=== PATIENT | female | born 1985 | race Caucasian/White ===

== ENCOUNTER → 2019-07-21 09:56 | Outpatient (CLI) | payer OTHER, SELFPAY ==
[2019-07-21 12:22] LABS: Free T4, Direct Thyroxine 0.97 ng/dL (0.78-2.19)
[2019-07-21 12:36] LABS: TSH w/ Reflex to FT4 1.41 uIU/mL (0.47-4.68)
[2019-07-22 16:40] LABS: Rubella Antibody IgG 23.9 IU/mL (>15)
== END ==
PROVIDERS: PCP Nurse Practitioner; Referring Provider Obstetrics & Gynecology; Visit Provider Obstetrics & Gynecology
DX: Z00.00 Encounter for general adult medical examination without abnormal findings (principal)
CPT/HCPCS: 36415; 84439; 84443; 86762

== ENCOUNTER → 2019-12-13 11:17 | Outpatient (CLI) | payer OTHER, SELFPAY ==
[2019-12-13 12:23] LABS: Add Manual Diff / Slide Review NO; Basophils Absolute Auto 0 /uL (0-100); Basophils Percent Auto 0.2 % (0-2); Eosinophils Absolute Auto 100 /uL (0-450); Eosinophils Percent Auto 0.9 % (2-4); Hematocrit 40.1 % (36-46); Hemoglobin 13.4 g/dL (12.0-16.0); Lymphocytes Absolute Auto 2100 /uL (1100-4500); Lymphocytes Percent Auto 24.9 % (25-40); Mean Corpuscular HGB Conc 33.6 % (30-36); Mean Corpuscular Volume 80.6 fL (80-100); Monocytes Absolute Auto 600 /uL (0-900); Monocytes Percent Auto 6.8 % (3-14); Neutrophils Absolute Auto 5600 /uL (1500-7000); Neutrophils Percent Auto 67.2 % (50-75); Platelet Count 280 X10^3/uL (150-400); Red Blood Cell Count 4.98 X10^6/uL (4.0-5.2); White Blood Cell Count 8.3 X10^3/uL (4.5-11.0)
[2019-12-13 13:13] LABS: Bilirubin Urine UA NEGATIVE (NEGATIVE); Color Urine UA YELLOW; Glucose Urine UA NEGATIVE (Negative); Ketones Urine UA TRACE (NEGATIVE); Leukocyte Esterase Urine UA 1+ (NEGATIVE); Nitrite Urine UA NEGATIVE (Negative); Occult Blood Urine UA TRACE-LYSED (Negative); Protein Urine UA NEGATIVE (Negative); Specific Gravity Urine UA >=1.030 (1.000-1.035); Urobilinogen Urine UA 0.2 E.U./dL (0.2)
[2019-12-13 13:25] LABS: Hepatitis B Surface Antigen NEGATIVE s/c (NEGATIVE); Rubella Antibody IgG 26.2 IU/mL (>15)
[2019-12-13 13:31] LABS: Appearance Urine UA Slightly Cloudy
[2019-12-13 13:34] LABS: HIV 1 & 2 Ab/Ag 4th Gen Combo NEGATIVE (NEGATIVE); Hep C Virus Ab w/Reflex Quant NEGATIVE s/c (NEGATIVE)
[2019-12-13 13:41] LABS: Amorphous Sediment Urine 1+; Bacteria Urine Moderate (10-30); Mucus Urine 2+ (Negative); RBC Urine 0-1/HPF (0-5/HPF); Squamous Epithelial Cell Urine 1-5 /HPF (0-5/HPF); WBC Urine 1-5/HPF (0-5/HPF)
[2019-12-14 06:09] LABS: RPR Screen Non Reactive (Non Reactive)
[2019-12-14 10:36] LABS: Varicella IgG Antibody >4000 index (Immune >165)
== END ==
PROVIDERS: PCP Nurse Practitioner; Referring Provider Obstetrics & Gynecology; Visit Provider Obstetrics & Gynecology
DX: Z34.01 Encounter for supervision of normal first pregnancy, first trimester (principal)
CPT/HCPCS: 36415; 80055; 81003; 81015; 86787; 86803; 86850; 86900; 86901; 87086; 87389

== ENCOUNTER → 2019-12-28 11:02 | Outpatient (CLI) | payer OTHER, SELFPAY ==
[2019-12-28 11:59] LABS: Specimen Label KIT TEST
== END ==
PROVIDERS: PCP Nurse Practitioner; Referring Provider Obstetrics & Gynecology; Visit Provider Obstetrics & Gynecology
DX: Z34.01 Encounter for supervision of normal first pregnancy, first trimester (principal); Z3A.12 12 weeks gestation of pregnancy
CPT/HCPCS: 99001

== ENCOUNTER → 2020-02-21 12:11 | Outpatient (CLI) | payer OTHER, SELFPAY ==
--- NOTE | 2020-02-21 12:13 | DI.US.S_ITS ---
PROCEDURE: US OB >= 14 WEEKS FETUS INDICATIONS: 20 week anatomy scan OUTSIDE/PRIOR DATING DATA: First dating scan (date and location): 02/08/2020 . Estimated date of delivery (TRINH) from first dating scan: 07/11/2020 . TECHNIQUE: Real-time scanning was performed of the fetus, with image documentation and biometric measurements. Endovaginal scanning: No COMPARISON: [facility], , OB <= 14 WEEKS FETUS, 12/13/2019, 12:25. FINDINGS: General: A single living intrauterine gestation is present. Presentation: Vertex. Placenta: Placental position is posterior , without previa. Amniotic fluid index: 12.9 cm, normal range is 5-24 cm. heart rate: 153 beats per minute. Maternal cervical canal: 4.9 cm long. Normal lower limit is 2.5 cm. biometrics: Biparietal diameter: 20 weeks 3 days Head circumference: 20 weeks 1 Abdominal circumference: 20 weeks 1 day Femur length: 20 weeks 0 days Estimated gestational age from initial scan: 19 weeks 6 days Composite gestational age from present scan: 20 weeks 1 day Estimated weight and percentile: 331 g; 59th percentile Measurement variability for biometric dating: +/- 7 days from 14 weeks to 15 weeks 6 days gestation, +/- 10 days from 16 weeks to 21 weeks 6 days gestation, +/- 2 weeks from 22 weeks to 27 weeks 6 days gestation, +/- 3 weeks for 28 weeks gestation or later. weight reference: 4500 g or EFW >90/95% is considered macrosomia or large for gestational age. EFW <10% is small for gestational age. EFW 5% or less is considered intra-uterine growth restriction. Anatomic survey: Neuro: Ventricles are non-dilated at less than 10 mm. Cisterna magna is normal at 3-11 mm. Cerebellum is normal in size and morphology. Nuchal skin fold: Normal at less than 6 mm between 14-21 weeks gestational age. Face: Nose and lips, facial profile are normal. Spine: No evidence for spina bifida. Heart: 4-chambered heart is present, with normal ventricular outflow tracts. Diaphragm: Diaphragm is intact. Stomach: Left-sided stomach is present. Kidneys: No hydronephrosis. Normal is less than 5 mm in 2nd trimester, less than 7 mm in 3rd trimester. Cord: 3-vessel cord has orthotopic insertion. Bladder: Normal in size. Extremities: All 4 extremities identified. IMPRESSION: 1. Single living intrauterine demonstrating appropriate interval growth with estimated weight at the 59th percentile. 2. anatomic survey within normal limits. Dictated by: Elfego Martínez [facility] Interpreted: Malik Reeves MD on 02/21/2020 at 13:46 Approved by: Malik Reeves M.D. on 02/21/2020 at 15:47
== END ==
PROVIDERS: PCP Nurse Practitioner; Referring Provider Obstetrics & Gynecology; Visit Provider Obstetrics & Gynecology
DX: Z34.02 Encounter for supervision of normal first pregnancy, second trimester (principal); Z3A.20 20 weeks gestation of pregnancy
CPT/HCPCS: 76811

== ENCOUNTER → 2020-04-13 09:44 | Outpatient (CLI) | payer OTHER, SELFPAY ==
[2020-04-13 11:12] LABS: Hematocrit 36.5 % (36-46); Hemoglobin 12.2 g/dL (12.0-16.0)
[2020-04-13 12:18] LABS: GTT (PREG) 1 Hour PP 50gm Dose 110 mg/dL (76-139)
== END ==
PROVIDERS: PCP Nurse Practitioner; Referring Provider Obstetrics & Gynecology; Visit Provider Obstetrics & Gynecology
DX: Z34.02 Encounter for supervision of normal first pregnancy, second trimester (principal); Z3A.26 26 weeks gestation of pregnancy
CPT/HCPCS: 82950; 85014; 85018

== ENCOUNTER → 2020-06-15 09:58 | Outpatient (CLI) | payer OTHER, SELFPAY ==
[2020-06-16 11:34] LABS: Strep Grp B PCR NEG for Grp B Strep
== END ==
PROVIDERS: PCP Nurse Practitioner; Visit Provider Obstetrics & Gynecology
DX: Z34.01 Encounter for supervision of normal first pregnancy, first trimester (principal); Z3A.36 36 weeks gestation of pregnancy
CPT/HCPCS: 87653

== ENCOUNTER 2020-06-28 04:50 | Inpatient (IN) | payer OTHER, SELFPAY ==
--- NOTE | 2020-06-28 04:58 | P.HPOB_ITS ---
OB HPI Date/Time Date of admission: 06/28/20 Date Patient Seen: 06/28/20 Time Patient Seen: 04:58 History of Present Condition Chief complaint: Evaluation of Labor : 1 Para: 0 Estimated Date of Delivery: 07/08/20 Estimated Gestational Age (weeks): 38 Narrative: Antonietta Meeks is a 35 year old female admitted with spontaneous rupture membranes not currently in active labor History of Present care: good care, initiated at week # (10), number of visits (11) and pounds weight gain (39) Dating criteria: LMP confirmed by 1st trimester US Ultrasounds: normal mid trimester US Obstetrical complications: none Medical complications: none Preadmission Labs Blood type: A (+) positive -: Antibody screen: negative, GBS status: negative, HBsAG: negative, HIV: negative and RPR/VDLR: negative -: Chlamydia screen: not detected and Gonorrhea screen: not detected -: Rubella: immune and Varicella: immune HCAB: negative Cell-free DNA: Normal female 1 hr GTT: 110 Evaluation Evaluation Baseline heart rate: 135 Variability: Moderate (11-25) monitor accelerations: Present Monitor Decelerations: Absent Contraction Frequency (minutes): 3 Uterine Contraction Intensity: Mild Category of Tracing: Reactive Status: Category l Cervical dilation (cm): 1 Cervical effacement (%): 80 station: -1 Comments: Grossly ruptured clear fluid [facility] Medical History (Updated 12/08/19 @ 09:19 by Lakshmi Simmons RN) Abnormal Pap smear of cervix (~2005) Allergies (~1994) Anxiety (~2007) Chicken pox Depression (~2002) Eczema (~2018) Foot fracture, right (~2008) History of bipolar disorder (~2015) Human papilloma virus (~2005) Plantar warts Surgical History (Updated 12/08/19 @ 09:19 by Lakshmi Simmons RN) Anesthesia [place] teeth extracted (~1998) Family History (Updated 12/08/19 @ 09:26 by Lakshmi Simmons RN) Father Hyperlipidemia Pancreatitis History of hip replacement Mother Hyperlipidemia History of knee replacement Sister Depression Grandfather Alzheimer's disease Grandfather Cancer Grandmother Diabetes mellitus Myocardial infarction Grandmother No problems noted. Family/Other Myocardial infarction Social History marital status: number of children: 0 household members: spouse lives independently: No caregiver/support person: Yes housing: house pets and animals: Yes (2 dogs, 1 cat. Aware of precautions.) education level: college occupational status: employed current occupational exposures/hazards: No special veronica needs: No leisure activities: exercise (Walking, horse care, active manual labor with employment.) Smoking Status: Never smoker second hand exposure: No alcohol intake: former (2-3 drinks/week.) substance use type: does not use during the past year weight has: remained stable caffeine: No Meds Home Medications and Allergies Home Medications Medication Instructions Recorded Confirmed Type sertraline 100 mg tablet 150 mg PO DAILY tab 07/21/19 12/13/19 History prenat.vits,dejuan,[id number]-petdb 1 tab PO DAILY 12/08/19 12/13/19 History Double Electric Breast Pump 1 ea TOPICAL .prn #1 ea 05/31/20 Rx Allergies Allergy/AdvReac Type Severity Reaction Status Date / Time lamotrigine [From Lamictal] Allergy Intermediate Rash Verified 12/13/19 12:10 Review of Systems Review of Systems Narrative: Patient denies headaches, scotomata, epigastric pain. Good movement. Spontaneous rupture membranes. Mild contractions. ROS: Yes All systems reviewed with the patient and are negative except as otherwise documented Exam Vital Signs (past 8 hours): Blood pressure 138/77, pulse 72, temperature 36.3? Narrative Exam Narrative: HEENT: WNL lungs: clear to auscultation, COR: RRR no S3,S4 or murmers ext: without edema, NT Assessment and Plan Assessment and Plan Assessment and Plan narrative: 38 week gestation with spontaneous rupture membranes. Will monitor for onset of active labor. Pitocin if needed. Anticipate vaginal delivery.
[2020-06-28 05:59] LABS: Add Manual Diff / Slide Review NO; Basophils Absolute Auto 100 /uL (0-100); Basophils Percent Auto 0.8 % (0-2); Eosinophils Absolute Auto 100 /uL (0-450); Hematocrit 37.5 % (36-46); Hemoglobin 12.5 g/dL (12.0-16.0); Lymphocytes Absolute Auto 1900 /uL (1100-4500); Lymphocytes Percent Auto 15.4 % (25-40); Mean Corpuscular HGB Conc 33.4 % (30-36); Mean Corpuscular Hemoglobin 27.3 PG (26-34); Mean Corpuscular Volume 81.6 fL (80-100); Monocytes Absolute Auto 900 /uL (0-900); Neutrophils Absolute Auto 9600 /uL (1500-7000); Neutrophils Percent Auto 75.8 % (50-75); Platelet Count 174 X10^3/uL (150-400); Red Blood Cell Count 4.59 X10^6/uL (4.0-5.2); Red Cell Distribution Width 14.8 % (11.6-14.8); White Blood Cell Count 12.6 X10^3/uL (4.5-11.0)
[2020-06-28 06:15] VITALS: BP 138/77
[2020-06-28 07:13] LABS: COVID19 - ADMIT (NP swab/PCR) Negative (Negative)
[2020-06-28] MEDS: LACTATED RINGERS 1,000 ML 100 ML IV ×2 (08:30→19:08)
[2020-06-28] MEDS: OXYTOCIN PREMIX 30 UNIT/500 ML PLAST..BAG IV (09:12)
--- NOTE | 2020-06-28 15:43 | PM.AN.REGBLK ---
Regional Block Pre-procedure Procedure: Continuous Lumbar Epidural for L&D Attending OB provider: Mariluz Torres PMH/ROS narrative: term labor, no complications, no significant PMH. Hx: No personal or family history of anesthesia problems. ASA Class: II Labs: Hct 37.5 % (36-46) 06/28/20 05:45 Plt Count 174 X10^3/uL (150-400) 06/28/20 05:45 Medications: Current Medications Generic Name Dose Route Start Last Admin Trade Name Freq PRN Reason Stop Dose Admin Calcium Carbonate 1,000 mg 06/28/20 05:13 Calcium Carbonate 500 Mg Tab PO Q2HR PRN Dyspepsia Carboprost Tromethamine 250 mcg 06/28/20 05:13 Carboprost 250 Mcg/Ml Ampul IM Q90M PRN Bleeding Fentanyl 100 mcg 06/28/20 05:13 Fentanyl 100 Mcg/2 Ml Inj IV Q1H PRN Pain, Severe (7-10) Lactated Ringer's 1,000 mls @ 100 mls/hr 06/28/20 05:15 06/28/20 08:30 Lactated Ringers IV 100 mls/hr CONT EDWIN Administration Oxytocin/Lactated Ringer's 30 unit in 500 mls @ 200 mls/hr 06/28/20 05:13 Oxytocin Premix IV CONT PRN Bleeding Protocol Tranexamic Acid 1,000 mg/ 100 mls @ 300 mls/hr 06/28/20 05:13 Sodium Chloride IV NOW PRN Bleeding Oxytocin/Lactated Ringer's 30 unit in 500 mls @ 3 mls/hr 06/28/20 08:08 06/28/20 09:12 Oxytocin Premix IV 3 milliunit/min TITRATE EDWIN 3 mls/hr Administration Protocol 3 MILLIUNIT/MIN Methylergonovine Maleate 0.2 mg 06/28/20 05:13 Methylergonovine 0.2 Mg Tablet PO Q6HR PRN Heavy Bleeding Methylergonovine Maleate 0.2 mg 06/28/20 05:13 Methylergonovine 0.2 Mg/Ml Vial IM NOW PRN Bleeding Misoprostol 800 mcg 06/28/20 05:13 Misoprostol 200 Mcg Tablet FL NOW PRN Bleeding Misoprostol 1,000 mcg 06/28/20 05:13 Misoprostol 200 Mcg Tablet FL NOW PRN Bleeding Misoprostol 400 mcg 06/28/20 05:13 Misoprostol 200 Mcg Tablet SL NOW PRN Bleeding Naloxone HCl 0.2 mg 06/28/20 05:13 Naloxone 0.4 Mg/Ml Vial IV Q2MIN PRN Opiate Reversal Ondansetron HCl 4 mg 06/28/20 05:13 Ondansetron 4 Mg/2 Ml Inj IV Q4HR PRN Nausea And Vomiting Oxytocin 10 unit 06/28/20 05:13 Oxytocin 10 Unit/Ml Vial IM NOW PRN Bleeding Allergies: Allergies Allergy/AdvReac Type Severity Reaction Status Date / Time lamotrigine [From Lamictal] Allergy Intermediate Rash Verified 12/13/19 12:10 Procedure Insertion date: 06/28/20 Insertion time: 15:00 Prep/Local: betadine x3 Interspace: L2-3 Patient position: sitting Needle: 18 gauge ITS KOOLtead (CSE: 27g Pencan through Hustead, clear CSF. 1mL 0.25% bupiv ) Loss of resistance with: saline DAY at (cm): 5 Catheter placed at SKIN (cm): 10 Catheter in SPACE (cm): 5 Insertion: No CSF, No Blood, No Paresthesia with insertion, No Paresthesia with injection and No Test dose reaction Initial Medications TEST DOSE time: 15:00 TEST DOSE: 1.5% lidocaine with epinephrine 1:200k (mL): 3 BOLUS DOSE time: 15:08 BOLUS DOSE (mL): 3 BOLUS DOSE med: other (infusate) Infusion INFUSION: 0.125% bupivacaine and with fentanyl 2 mcg/mL Initial rate (mL/hr): 6 Subsequent interventions: Post-procedure Anesthesia time START: 14:56 Anesthesia time END: 19:52 Post-procedure Anesthesia Assessment: No Anesthesia complications
--- NOTE | 2020-06-28 20:28 | P.PCNOB_ITS ---
Labor & Delivery Delivery date: 06/28/20 Intrapartal Events: None Cervical ripening method: none Induction method: per pitocin protocol Delivery monitor: external FHT Route of delivery: Episiotomy description: None L&D Laceration Description: Perineal - 2nd Degree Delivery repair: vicryl (2-O) Estimated blood loss (mL): 700 Anesthesia Type: Epidural Complications: hemorrhage Narrative: PROCEDURE: at 38w4d presented with PROM with clear fluid and was admitted to Labor and Delivery. Pitocin was initiated after the pt did not spontaneously progress into active labor. The patient progressed through the 1st stage over 16 hours. Pain was controlled with an epidural. The patient progressed through the 2nd stage over 1 hour and delivered a viable female infant with APGARs 8/9 at 19:52 via . The cord was cut and clamped after 5 minutes, when a large gush of blood was seen from the vagina. The placenta did not easily delivery with gentle traction at that time, however. The perineum and vagina were inspected with 2nd degree laceration with superficial extension to the rectum but not through the sphincter. This was repaired with 2-O Vicryl. With active management of the third stage of labor, the cord avulsed with gentle traction. The placenta was then manually removed, with the uterus swept after removal to ensure there were no remaining pieces. The pt was noted to have a hemorrhage due to intermittent brisk bleeding prior to delivery of the placenta. There was no uterine atony after the placenta delivered. PREPROCEDURE DIAGNOSIS: Intrauterine at 38w4d GBS negative RH positive POSTPROCEDURE DIAGNOSIS: Intrauterine at 38w4d, delivered Same as preprocedure hemorrhage [place] Baby 1: Infant gender: Female Presentation: vertex Position: Right Occiput Anterior Placenta delivery description: Manual Removal Cord Vessel Description: 3 Vessels score (1 min): 8 score (5 min): 9 weight: 7 lb 15 oz Plan for aftercare: Routine care and Other (2g Ancef due to manual extraction of placenta)
[2020-06-28] MEDS: OXYTOCIN PREMIX 30 UNIT/500 ML PLAST..BAG 200 UNIT IV (21:05)
[2020-06-28] MEDS: CEFAZOLIN 1 GM VIAL 2 GM IV (22:19)
[2020-06-28] MEDS: IBUPROFEN 600 MG TABLET PO (23:53)
[2020-06-28] MEDS: DERMOPLAST SPRAY 20% 60 ML 1 SPRAY TOP (23:54)
[2020-06-29] MEDS: IBUPROFEN 600 MG TABLET PO ×2 (06:10→12:03)
[2020-06-29] MEDS: PRENATAL VIT,CALC/IRON/FOLIC 1 TABLET 1 TAB PO (08:23)
[2020-06-29] MEDS: SERTRALINE 50 MG TABLET 150 MG PO (08:24)
[2020-06-29] MEDS: DOCUSATE 100 MG CAPSULE PO (08:24)
[2020-06-29] MEDS: LANOLIN OINT 7 GM 1 APPLIC TOP (10:14)
[2020-06-29 12:03] VITALS: TEMP 36.8
--- NOTE | 2020-06-29 13:23 | P.DS_ITS ---
Discharge Providers Provider Date of admission: 06/28/20 04:50 Discharge Date: 06/29/20 Primary care physician: ZAIRA Pineda Consults: 06/29/20 20:27 Consult to Packaging Technician Routine Comment: Discharge provider: Mariluz Torres MD Summary Hospital Course Date Patient Seen: 06/29/20 Time Patient Seen: 13:24 Diagnoses: Premature rupture membranes, vaginal delivery, retained placenta causing hemorrhage Hospital Course: Patient arrived in Labor and delivery after spontaneous rupture membranes. She did not begin active labor so she was started on Pitocin. She received an epidural catheter for pain control. She had a spontaneous vaginal delivery with repair of a second-degree tear and a manual removal of retained placenta. Peripartum Data Infant Delivery Method: Natural Vaginal Laceration Description: Perineal - 2nd Degree Procedures: Pitocin augmentation of labor, Epidural catheter, spontaneous vaginal delivery, repair of second-degree tear, manual removal of placenta complications: none [place] 1: Gender: Female Disposition of : home Discharge Diagnosis (1) Vaginal delivery: Status: Acute (2) hemorrhage, third stage, delivered: Status: Acute Status at Discharge Cognitive/behavioral status at discharge: oriented Functional status at discharge: independent ambulation Overall status at discharge: patient is progressing back to baseline Time Spent with Patient Time attestation: Total time spent providing and/or coordinating discharge services: Time spent: Less than 30 minutes Objective Labs Result Diagrams: 06/28/20 05:45 Exam Vital Signs (past 8 hours): - Blood pressure 128/80, pulse 69, temperature 98.3? 06/29/20 12:03 Temperature 98.3 F Narrative Exam Narrative: Abdomen is soft, nontender. Uterus is firm, at U, nontender. R epair of her perineum is intact. Mild lochia. Extremities with trace edema and nontender. Patient is Rh positive, rubella immune, received Tdap in the 3rd trimester. Discharge Plan Discharge Plan Patient Disposition: Home Discharge orders & Medications Prescriptions: Continued Double Electric Breast Pump 1 ea topical .prn Qty: 1 RF: 0 prenat.vits,dejuan,[id number] Tablet 1 tab PO DAILY RF: 0 sertraline 100 mg tablet 150 mg PO DAILY RF: 0 Follow up/Referrals: Brenda Perez ARNP [Primary Care Provider] - Kamini Scruggs MD [Physician] - 6 Weeks Diet/Activity/Treatments Diet: Regular Activity: Nothing in vagina for 6 weeks Skin/Wound/Dressing Care Report to your healthcare provider any signs of infection, such as:: chills, fever and increased pain Other wound treatment: Keep area clean. Discharge Data Primary Care Provider: Brenda Perez
[2020-06-29 14:56] VITALS: BP 138/77; PULSE 94; RESP 18; TEMP 36.8
== END 2020-06-29 22:32 | disposition home or self-care (01) | DRG 806 ==
PROVIDERS: Admitting Provider Specialist; PCP Nurse Practitioner; Referring Provider Specialist; Visit Provider Specialist
DX: O42.02 Full-term premature rupture of membranes, onset of labor within 24 hours of rupture (principal); O72.0 Third-stage hemorrhage; Z37.0 Single live birth; Z3A.38 38 weeks gestation of pregnancy; O70.1 Second degree perineal laceration during delivery; Z20.822 Contact with and (suspected) exposure to COVID-19
CPT/HCPCS: 01967; 36415; 59050; 59400; 59409; 85025; 86850; 86900; 86901; 87635; C9803; G0379; J0690; J2590

== ENCOUNTER → 2022-01-22 09:01 | Outpatient (CLI) | payer OTHER, SELFPAY ==
[2022-01-22 12:26] LABS: COVID19 -Nasal RAPID Negative (Negative)
== END ==
PROVIDERS: PCP Nurse Practitioner; Visit Provider Surgery
DX: Z20.822 Contact with and (suspected) exposure to COVID-19 (principal); Z01.812 Encounter for preprocedural laboratory examination
CPT/HCPCS: 87635; C9803

== ENCOUNTER 2022-01-23 10:00 | Day surgery (SDC) | payer OTHER, SELFPAY ==
--- NOTE | 2022-01-23 | PATH_ITS ---
[facility] Accession Number: [id number] . 01 Material submitted: . PART A: colon - CECAL POLYP PART B: colon - HEPATIC FLEXURE COLON POLYP PART C: colon - TRANSVERSE COLON POLYPS . 01 Diagnosis: A. Cecal Polyp: Tubular adenoma. . B. Hepatic Flexure Polyp: Sessile serrated adenoma. . C. Transverse Colon Polyps: Serrated lesion, favor sessile serrated adenoma x1. Tubular adenoma x2. MRV 01/25/2022 1420 Local . 01 Electronically signed: . Simone Win MD, PhD, Pathologist NPI- [id number] . 01 Gross description: . Part A: CECAL POLYP: Received in formalin is 1 fragment(s) of arenas, soft tissue measuring 0.2 x 0.2 x 0.1 cm submitted entirely in 1 cassette(s) Part B: HEPATIC FLEXURE COLON POLYP: Received in formalin is 1 fragment(s) of arenas, soft tissue measuring 1.5 x 0.3 x 0.1 cm submitted entirely in 1 cassette(s) Part C: TRANSVERSE COLON POLYPS: Received in formalin are multiple fragment(s) of arenas, soft tissue measuring 1.5 x 0.3 x 0.1 cm in aggregate submitted entirely in 1 cassette(s) /CPE 01/24/2022 0932 Local . 01 Pathologist provided ICD-10: D12.0, D12.3 . 01 CPT . 905182, 818846, 264657 Specimen Comment: A courtesy copy of this report has been sent to [phone] Performed at: 01 [facility] [address] [place] [address] [address], [place], [place] [id number] MD Malik Viera MD Phone: [phone]
[2022-01-23 10:43] VITALS: BMI 29.5
[2022-01-23 10:50] VITALS: BP 114/75; PULSE 67; RESP 16; TEMP 36.6; O2SAT 99
[2022-01-23] MEDS: LACTATED RINGERS 1,000 ML 100 ML IV (11:02)
--- NOTE | 2022-01-23 11:51 | P.HP_ITS ---
History of Present Illness History of Present Illness Date Patient Seen: 01/23/22 Time Patient Seen: 11:45 Chief complaint: COLONOSCOPY Narrative: It is a very pleasant 87-year-old female who presented III. Her sister has rectal adenocarcinoma and a 44. Her grandfather had colon cancer greater than age 60. She has not had previous colonoscopy. Patient History Medical History (Updated 06/29/20 @ 13:31 by Mariluz Torres MD) Abnormal Pap smear of cervix (~2005) Allergies (~1994) Anxiety (~2007) Chicken pox Depression (~2002) Eczema (~2018) Foot fracture, right (~2008) History of bipolar disorder (~2015) Human papilloma virus (~2005) Plantar warts Surgical History (Updated 12/08/19 @ 09:19 by Lakshmi Simmons RN) Anesthesia [place] teeth extracted (~1998) Family & Social History Family History (Updated 12/08/19 @ 09:26 by Lakshmi Simmons RN) Father Hyperlipidemia Pancreatitis History of hip replacement Mother Hyperlipidemia History of knee replacement Sister Depression Grandfather Alzheimer's disease Grandfather Cancer Grandmother Diabetes mellitus Myocardial infarction Grandmother No problems noted. Family/Other Myocardial infarction Social History: household members spouse lives independently No caregiver/support person Yes Tobacco & Substance use: Smoking Status Never smoker alcohol intake former Meds Home Medications and Allergies Home Medications Medication Instructions Recorded Confirmed Type sertraline 100 mg tablet 150 mg PO DAILY 07/21/19 01/23/22 History prenat.vits,dejuan,[id number] 1 tab PO DAILY 12/08/19 12/04/21 History Double Electric Breast Pump 1 ea topical .prn #1 ea 05/31/20 12/04/21 Rx levonorgestrel 20 mcg/24 hours (8 intrauterine 12/04/21 12/04/21 History yrs) 52 mg intrauterine device (Mirena) Allergies Allergy/AdvReac Type Severity Reaction Status Date / Time lamotrigine [From Lamictal] Allergy Intermediate Rash Verified 12/04/21 13:38 Review of Systems Review of Systems ROS: Yes All systems reviewed with the patient and are negative except as otherwise documented Exam Vital Signs (past 8 hours): - 01/23/22 10:50 Temperature 98 F Pulse Rate 67 Respiratory Rate 16 Blood Pressure 114/75 Pulse Oximetry 99 Oxygen Delivery Method Room Air Oxygen Delivery Method Room Air Const General: cooperative, healthy appearing, comfortable and No acute distress HENMT Head: normocephalic and atraumatic Resp Effort & Inspection: normal respiratory effort, able to speak in complete sentences and no audible wheezes Auscultation: clear to auscultation bilaterally Cardio Rate: regular rate Rhythm: regular rhythm GI Palpation: soft Assessment & Plan Assessment & Plan narrative: 1. Family history colon cancer, history of adenocarcinoma the rectum. In a grandfather greater than age 60 Colonoscopy today, further recommendations Time Spent With Patient Critical Care time: I spent a total of [] minutes of critical care time on this patient's care today; this time is exclusive of procedural time.
--- NOTE | 2022-01-23 12:17 | PM.OP.COLON ---
Operative Date/Time/Diagnoses Date of procedure: 01/23/22 Time of procedure: 11:55 Procedure Notes Procedure in detail: Surgeon: Rox Umana DO Procedure: Colonoscopy with polypectomy Preoperative diagnosis: 1. Family history colon cancer -sister Dx 44, grandparent <60 Postoperative diagnosis: 1. 5 mm polyp cecum, removed with cold snare 2. 8 mm hepatic flexure removed with cold snare 3. Three polyps in the transverse colon 6-10 mm 4. Mild internal hemorrhoids 5. Normal terminal ileum Medications: Monitored anesthesia care Preanesthesia Assessment An H and P was performed/updated and the Px?s ASA class is 2. The procedure was discussed in detail with the patient. The potential risks and complications including infection, bleeding, missed lesions, perforation, need for surgery in case of perforation, prolonged hospital stay, and were explained. A brief question and answer period was allotted and once all questions were answered, informed consent was obtained. The patient was brought back to the procedure room and placed on standard monitoring. The patient?s vital signs were monitored continuously throughout the entire procedure. Prior to starting, a timeout was performed to confirm the patient?s identity, allergies, medications, and procedure. Procedure in detail The patient was placed in left lateral decubitus position and once adequate sedation was obtained a VINI was performed. The digital rectal examination did not reveal any palpable lesions. The tip of the colonoscope was placed in the anal canal and advanced without difficulty all the way to the cecum which was identified by the appendiceal orifice and the ileocecal valve. We were able to intubate the terminal ileum which was unremarkable. Careful examination of all farfan of the colon was performed with irrigation of any residual stool. 5 mm polyp found in the cecum, sessile removed with cold snare and retrieved 8 mm polyp at the hepatic flexure sessile removed with cold snare and retrieved Three sessile polyps in transverse colon region in size from 6-10 mm all removed with cold snare and retrieved Grade 1-2 internal hemorrhoids noted on retroflexion. Terminal ileum appeared unremarkable The patient tolerated the procedure well and will be brought back to the recovery area to be discharged once criteria are met. The prep was judged to be good/excellent and adequate to identify polyps less than 5 mm. The withdrawal time was 16min. Complications There were no complications and estimated blood loss was minimal. Recommendations: Resume previous diet Continue outPx medications Follow up pathology results Repeat colonoscopy timing will be determined after pathology results are reviewed An emergency contact number was given to the patient for any complications related to the procedure
[2022-01-23 12:20] VITALS: BP 109/55; PULSE 59; RESP 18; TEMP 36.6; O2SAT 99
[2022-01-23 12:25] VITALS: BP 114/63; PULSE 69; RESP 19; O2SAT 99
[2022-01-23 12:30] VITALS: BP 111/65; PULSE 58; RESP 16; O2SAT 100
[2022-01-23 14:44] VITALS: BP 114/74; PULSE 74; RESP 16; TEMP 36.7; O2SAT 97
== END 2022-01-23 12:50 | disposition home or self-care (01) ==
PROVIDERS: PCP Nurse Practitioner Family; Referring Provider Student in an Organized Health Care Education/Training Program; Visit Provider Student in an Organized Health Care Education/Training Program
PROC: 0DJD8ZZ Inspection of Lower Intestinal Tract, Via Natural or Artificial Opening Endoscopic (ICD-10-PCS; CPT 45378; principal; 2022-01-23 11:30)
DX: Z12.11 Encounter for screening for malignant neoplasm of colon (principal); Z80.0 Family history of malignant neoplasm of digestive organs; K64.8 Other hemorrhoids; D12.0 Benign neoplasm of cecum; D12.3 Benign neoplasm of transverse colon
CPT/HCPCS: 45385; J2704

== ENCOUNTER → 2023-11-07 11:31 | Outpatient (CLI) | payer OTHER, SELFPAY ==
--- NOTE | 2023-11-07 11:33 | DI.MG.S_ITS ---
BILATERAL DIGITAL SCREENING MAMMOGRAM 3D/2D WITH CAD: 11/07/2023 CLINICAL: Routine screening. Baseline exam. No prior exams were available for comparison. The breasts are heterogeneously dense, which may obscure small masses (category c / 51-75% glandular tissue). Current study was also evaluated with a Computer Aided Detection (CAD) system. No significant masses, calcifications, or other findings are seen in either breast. IMPRESSION: NEGATIVE There is no mammographic evidence of malignancy. A 1 year screening mammogram is recommended. Based on the Tyrer Cuzick model (a risk assessment model) the patient's lifetime risk is 16.1% and her 10 year risk is 2.0%. According to the ACR, ACS, and NCCN guidelines, an annual breast MRI exam along with mammogram is recommended if the patient's lifetime risk is 20% or greater. This exam was interpreted at Station ID: [id number]. NOTE: For mammograms, a report in lay terms will be sent to the patient. Approximately 15% of breast malignancies will not be visualized mammographically. In the management of a palpable breast mass, a negative mammogram must not discourage biopsy of a clinically suspicious lesion. Electronically Signed By: Dimas ambrosio/eliecer:11/07/2023 14:28:41 letter sent: Normal Exam ACR BI-RADS Category 1: Negative
== END ==
PROVIDERS: PCP Nurse Practitioner Family; Referring Provider Nurse Practitioner Family; Visit Provider Nurse Practitioner Family
DX: Z12.31 Encounter for screening mammogram for malignant neoplasm of breast (principal); R92.333 Mammographic heterogeneous density, bilateral breasts
CPT/HCPCS: 77063; 77067

== ENCOUNTER → 2025-01-12 09:29 | Outpatient (CLI) | payer OTHER, SELFPAY ==
--- NOTE | 2025-01-12 09:31 | DI.MG.S_ITS ---
MM screening mammo BI: 01/12/2025. BI-RADS: 1 CLINICAL: 40-year old female for bilateral screening mammogram. Tyrer-Cuzick lifetime risk of 20.0%. No personal or first-degree family history of breast cancer. Current reported family history of breast cancer: paternal aunt. PRIOR EXAMS 11/07/2023. MAMMOGRAPHY TECHNIQUE: 2D and 3D (tomosynthesis) digital mammographic views obtained, with additional images as needed for full coverage. Current study was also evaluated with a Computer Aided Detection (CAD) system. DENSITY C. The breasts are heterogeneously dense, which may obscure small masses. MAMMOGRAPHY FINDINGS Bilateral: No suspicious mass, asymmetry, microcalcification, or other abnormality seen. IMPRESSION: * No evidence of malignancy. RECOMMENDATIONS Bilateral * According to the Tyrer-Cuzick Risk Assessment Model, based on the information provided your patient has a greater than 20% lifetime risk for developing breast cancer. Consider supplemental screening with breast MRI and participation in a high risk screening program. * Annual screening mammography. OVERALL ASSESSMENT CATEGORY BI-RADS-1: Negative. The [employer] recommends annual screening mammography beginning at age 40 for women with average risk of breast cancer. ELECTRONICALLY SIGNED: Sandy Winters M.D. on 01/12/2025 at 02:50:06 PM PT Interpreting Station ID: [id number]
== END ==
LOC: MAMMO 09:30
PROVIDERS: PCP Nurse Practitioner Family; Referring Provider Nurse Practitioner Family; Visit Provider Nurse Practitioner Family
DX: Z12.31 Encounter for screening mammogram for malignant neoplasm of breast (principal); R92.333 Mammographic heterogeneous density, bilateral breasts
CPT/HCPCS: 77063; 77067